=== PATIENT | male | born 1960 | race Caucasian/White ===

== ENCOUNTER 2020-04-15 11:01 | Inpatient (IN) | payer OTHER, SELFPAY ==
[2020-04-15] VITALS (14 sets, daily range): BP systolic 103–207; BP diastolic 63–95; PULSE 88–105; RESP 16–20; TEMP 36.4–39.4; O2SAT 94–98; BMI 55.9
--- NOTE | 2020-04-15 11:19 | CT_ITS ---
EXAMINATION: CT HEAD WITHOUT CONTRAST CT CERVICAL SPINE WITHOUT CONTRAST CLINICAL INFORMATION: Reason for Exam trauma, pain COMPARISON: None. TECHNIQUE: Imaging was performed from the skull base to vertex without intravenous administration of contrast. In addition, helical noncontrast CT imaging was acquired through the cervical spine and source images were reviewed along with axial reconstructions and sagittal and coronal MPRs. This CT examination was performed using dose optimization techniques as appropriate, variously including the following: *Automated exposure control. *Adjustment of mA and/or kV according to patient size (this includes techniques or standardized protocols for targeted exams where dose is matched to indication/reason for exam; i.e. extremities or head). *Use of iterative reconstruction technique. Total exam dose-length product 1800.6 mGy-cm FINDINGS: HEAD: No intracranial mass, hemorrhage, or midline shift is visualized. The ventricles and sulci are age-appropriate. No extra-axial collections are identified. The paranasal sinuses and mastoid air cells are well aerated, except for partial opacification of the right-sided maxillary sinus with air-fluid level, may represent acute posttraumatic intrasinus hemorrhage versus acute sinusitis.. CERVICAL SPINE: Nonspecific straightening of the cervical spine is present with multilevel mild degenerative spondylosis throughout the entire cervical spine. Mild facet degenerative arthritic changes are also noted bilaterally throughout the spine. There is no evidence of acute cervical spine fracture. Vertebral bodies remain normal in height, and alignment is anatomic. No prevertebral or paravertebral soft tissue abnormality is identified. Limited assessment of the lung apices is unremarkable. CT/CT cervical spine wo con IMPRESSION: 1. No acute intracranial pathology. 2. No CT evidence of acute cervical spine fracture or traumatic subluxation. 3. Note is made of air-fluid level within the right maxillary sinus, may represent acute posttraumatic intrasinus hemorrhage versus acute sinusitis.
--- NOTE | 2020-04-15 11:19 | XR_ITS ---
EXAMINATION: CHEST AND LUMBAR SPINE CLINICAL INFORMATION: Weakness COMPARISON: Chest x-ray of February 04, 2018 TECHNIQUE: AP portable chest and three-view lumbar spine FINDINGS: AP portable film of the chest does not demonstrate any evidence of acute parenchymal disease, pneumothorax, or pleural effusion. Heart normal size. No evidence of pulmonary edema. 3 views of the lumbar spine performed. Lateral views are very limited due to lack of penetration. There are 5 nonrib bearing lumbar vertebra. Degenerative spurring is seen within the lower thoracic spine. No definite acute fracture is identified. There is disc space narrowing seen L3-S1. There is facet arthropathy seen bilaterally L4-S1. There is gaseous distention of multiple loops of small bowel. XR/XR chest 1V IMPRESSION: No acute parenchymal disease within the chest. Lumbar spondylosis as described without definite acute fracture identified but with limitation of lateral images.
--- NOTE | 2020-04-15 11:19 | ECG_ITS ---
Test Reason : WEAKNESS/FALL Blood Pressure : / mmHG Vent. Rate : 095 BPM Atrial Rate : 096 BPM P-R Int : 000 ms QRS Dur : 078 ms QT Int : 338 ms P-R-T Axes : 000 057 041 degrees QTc Int : 424 ms Normal sinus rhythm Poor data quality Nonspecific ST abnormality Low voltage QRS Abnormal ECG When compared with ECG of 06-JUL-2019 14:35, Heart rate has increased Premature ventricular complexes is no longer Present Referred By: Dianelys Miller Electronically Signed By:MATILDA ZAVALETA MD
--- NOTE | 2020-04-15 11:19 | XR_ITS ---
EXAMINATION: CHEST AND LUMBAR SPINE CLINICAL INFORMATION: Weakness COMPARISON: Chest x-ray of February 04, 2018 TECHNIQUE: AP portable chest and three-view lumbar spine FINDINGS: AP portable film of the chest does not demonstrate any evidence of acute parenchymal disease, pneumothorax, or pleural effusion. Heart normal size. No evidence of pulmonary edema. 3 views of the lumbar spine performed. Lateral views are very limited due to lack of penetration. There are 5 nonrib bearing lumbar vertebra. Degenerative spurring is seen within the lower thoracic spine. No definite acute fracture is identified. There is disc space narrowing seen L3-S1. There is facet arthropathy seen bilaterally L4-S1. There is gaseous distention of multiple loops of small bowel. XR/XR lumbar spine 2-3V IMPRESSION: No acute parenchymal disease within the chest. Lumbar spondylosis as described without definite acute fracture identified but with limitation of lateral images.
--- NOTE | 2020-04-15 11:21 | ED_ITS ---
HPI - Fall General Chief Complaint: Fall Stated Complaint: FALL OUT OF BED Time Seen by Provider: 04/15/20 11:04 Source: patient and EMS Mode of arrival: EMS Limitations: no limitations History of Present Illness HPI Narrative: 59-year-old male with a past medical history of hypertension, insulin-dependent diabetes, high cholesterol, morbid obesity of low back pain. The patient tells me around 03:00 he was walking back from the bathroom with his cane when he slipped landing on his back. He is unsure if he hit his head. He does not believe he lost consciousness. He was unable to get off the floor by himself. His mom found him this morning and called EMS. Patient does tell me he has had generalized weakness for the last few days and feels dizzy with position changes. No chest pain, shortness of breath, fevers, chills, cough, vomiting, diarrhea, urinary problems. complaint: fall Onset (ago): hour(s) Fall from: standing Fall witnessed: no Place fall occurred: home Loss of consciousness: none Prolonged down time: yes (8 hrs) Symptoms prior to fall: none Context: tripped/slipped Location of injury: back Related Data Previous Rx's Medication Instructions Recorded metformin 1,000 mg tablet 1,000 mg PO BID #60 tab 04/07/20 amlodipine 5 mg tablet 5 mg PO DAILY #30 tab 04/12/20 Allergies Allergy/AdvReac Type Severity Reaction Status Date / Time No Known Allergies Allergy Unverified 02/24/20 14:37 [No Known Allergies*] Review of Systems Review of Systems: Yes all other systems are reviewed and are negative Constitutional: Constitutional: Reports no additional constitutional complaints, Denies body ache(s), Denies chills, Denies fever(s), Denies headache(s) and Reports weakness Eyes: Eyes: Reports no additional eye complaints and Denies change in vision ENT: Reports system reviewed and no additional complaints, except as documented, Reports dizziness, Denies headache(s), Denies nasal congestion, Den ies nasal discharge and Denies neck pain Cardiovascular: Cardiovascular: Reports no additional cardiovascular complaints, Denies chest pain, Denies leg edema and Denies dyspnea Respiratory: Respiratory: Reports no additional respiratory complaints, Denies cough and Denies dyspnea Gastrointestinal: Gastrointestinal: Reports no additional gastrointestinal complaints, Denies abdominal pain, Denies diarrhea, Denies nausea and Denies vomiting Genitourinary: Genitourinary: Denies urinary incontinence Musculoskeletal: Musculoskeletal: Reports no additional musculoskeletal complaints, Reports back pain, Denies arthralgias, Denies joint swelling, Denies neck pain, Denies numbness and Denies tingling Integumentary/Breasts: Skin/Breast: Reports system reviewed and no additional complaints, except as docu and Denies rash Neurologic: Reports system reviewed and no additional complaints, except as documented, Denies Abnormal speech present, Reports dizziness, Denies headache(s), Denies numbness, Denies tingling and Reports weakness PMFSH Past Medical History Attestation statement: The following information was validated with the patient. Source: obtained from family and nursing notes reviewed Medical History Diabetic acidosis, type I High cholesterol HTN (hypertension) Surgical History Hx of hernia repair Social History Social History Smoking Status: Former smoker Use of substances other than those prescribed or required for medical reasons: No Advance Directives: No Advance Directives Information Provided: No Physical Exam Vital Signs: Vital Signs: Last Vital Signs Temp 97.5 F 04/15/20 11:10 Pulse 93 04/15/20 11:10 Resp 20 04/15/20 11:10 BP 182/70 H 04/15/20 11:10 Pulse Ox 97 04/15/20 11:10 Body Mass Index 55.9 Const: General: cooperative, healthy appearing, comfortable and no acute distress Orientation/consciousness: patient oriented x3 Limitations: no limitations HENMT: Head: Yes normal to inspection Ears: hearing grossly normal bilaterally General nose exam: Normal external nose present Face and sinus: Yes normal facial exam Mouth: Normal oral and palatal mucosa present Throat: Yes posterior oropharynx normal Eyes: General: appearance normal, both eyes and all related structures Pupils: Equal, round and reactive pupils present Neck: Neck: Yes normal visual inspection Chest: Chest palpation & inspection: normal inspection of the chest Resp: Effort & Inspection: normal respiratory effort Auscultation: clear to auscultation bilaterally Cardio: Rate: regular rate Rhythm: regular rhythm Peripheral pulses: Peripheral pulses 2+ throughout GI: Inspection: Yes normal to inspection Palpation (GI): Soft to palpation and nontender Auscultation: normal bowel sounds : General: Yes no CVA tenderness Back/Spine/Pelvis: Other: Lumbar midline tenderness with no step-offs or deformities. Moderate soft tissue tenderness paraspinal. Back: no CVA tenderness Thoracic/Lumbar Spine: thoracic and lumbar spine normal to inspection and lumbar spinal tenderness Skin: General skin exam: no rashes or lesions noted Neuro: General: patient oriented x3, Normal light touch and pain sensation, no focal motor deficits and normal sensation to monofilament Cranial nerves: Yes CN's II-XII intact bilaterally and Yes Equal, round and reactive pupils present Cognition (Neuro): normal cognition Speech: No Abnormal speech present Gait exam (Neuro): Normal gait present Motor exam (neuro): 5/5 motor strength present throughout (4/5 strength lower extremities-equal), Pronator motor f unction not present, no tremor noted and no pronator drift noted Sensory Exam: Normal double simultaneous stimulation for sensation Deep tendon reflexes (DTR's): Right patellar reflex intensity grade: 2+ and Left patellar reflex intensity grade: 2+ Coordination: [id number] test normal and [id number] test normal Extrem: General: Yes normal to inspection Course Course Course Narrative: 59-year-old male here with low back pain status post mechanical fall at 03:00. Patient had been down for about 8 hours before his mom found him this morning. He has since been complaining of some generalized weakness and dizziness with position changes for the last few days. On exam the patient is diffusely weak. He has no focal tenderness and neurological deficits. Stable vital signs. Will check CT head, neck, lumbar imaging, chest x-ray, EKG, labs, orthostatics, UA. 1200-sign out to Dianelys MCKEON pending above. MDM - Fall MDM Narrative Medical decision making narrative: Lumbar strain versus contusion versus fracture, rhabdomyolysis, electrolyte abnormality, anemia, ICH versus contusion, underlying infectious process(pneumonia, UTI) ECG Data ECG interpretation date: 04/15/20 ECG interpretation time: 11:40 Interpretation: Artifact present. Rate of 95, normal HI, normal QRS, normal QT. No ST changes Discharge Plan Discharge Prescriptions: No Action metformin 1,000 mg tablet 1,000 mg PO BID Qty: 60 RF: 3 amlodipine 5 mg tablet 5 mg PO DAILY Qty: 30 RF: 0
[2020-04-15] MEDS: oxyCODONE HCl Immed Release 5 MG TABLET PO (11:32)
[2020-04-15 12:26] LABS: Basophils Percent Auto 0.2 % (0-2); Hematocrit 41.5 % (42-52); Hemoglobin 13.8 g/dl (14.0-18.0); Imm Gran Abs Auto 0.05 X10*3/uL (0.00-0.03); Imm Gran Pct Auto 0.5 % (0.0-0.4); Lymphocytes Absolute Auto 0.7 X10*3/uL (1.2-4.9); Lymphocytes Percent Auto 6.4 % (20-40); MANUAL DIFF FLAG SCAN; Mean Corpuscular HGB Conc 33.3 g/dl (31.0-36.0); Mean Corpuscular Hemoglobin 29.5 pg (27.0-33.0); Mean Corpuscular Volume 88.7 fL (80-98); Monocytes Absolute Auto 0.8 X10*3/uL (0.1-1.2); Monocytes Percent Auto 7.1 % (2-11); Neutrophils Absolute Auto 9.1 X10*3/uL (2.0-8.3); Neutrophils Percent Auto 85.8 % (45-73); Platelet Count 152 X10*3/uL (160-400); Red Blood Count 4.68 X10*6/uL (4.60-5.80); Red Cell Distribution Width 13.2 % (11.0-16.0); SCAN SMEAR FLAG 1; White Blood Count 10.6 X10*3/uL (4.8-10.8)
[2020-04-15 12:33] LABS: INTERNATIONAL NORM RATIO 1.1 (0.9-1.1); Prothrombin Time 13.4 SEC (10.8-13.0)
--- NOTE | 2020-04-15 12:43 | PC.NURSE ---
pt back from ct pt sleeping but states that pain has improved 2/10 at this time, ns on the monitor
[2020-04-15 13:01] LABS: SLIDE REVIEW VERIFIED
[2020-04-15 13:04] LABS: Alanine Aminotransferase 17 U/L (0-40); Albumin Level 3.5 g/dL (3.5-5.0); Alkaline Phosphatase 63 U/L (39-117); Anion Gap 14 (12-20); Aspartate Amino Transferase 41 U/L (5-37); Bilirubin Direct < 0.2 mg/dL (0.0-0.5); Bilirubin Total 0.3 mg/dL (0.0-1.0); Blood Urea Nitrogen 36 mg/dL (9-16); Calcium 7.6 mg/dL (8.4-10.2); Carbon Dioxide 25 mmol/L (22-29); Chloride 105 mmol/L (96-108); Creatinine Clr Calc Pharmacy 72.4; Estimated Glomerular Filt Rate 39; Glucose Random 98 mg/dL (60-115); Magnesium 1.5 mg/dL (1.6-2.6); Potassium 6.1 mmol/l (3.3-5.1); Sodium 138 mmol/L (135-145); Total Protein 6.3 g/dL (6.5-8.0)
--- NOTE | 2020-04-15 13:21 | ECG_ITS ---
Test Reason : WEAKNESS Blood Pressure : / mmHG Vent. Rate : 089 BPM Atrial Rate : 089 BPM P-R Int : 170 ms QRS Dur : 098 ms QT Int : 358 ms P-R-T Axes : 055 035 039 degrees QTc Int : 435 ms Normal sinus rhythm Low voltage QRS Intra-ventricular conduction delay Borderline ECG When compared with ECG of 15-APR-2020 11:10, No significant changes seen Referred By: Dianelys Miller Electronically Signed By:MATILDA ZAVALETA MD
[2020-04-15] MEDS: Sodium Polystyrene Sulfon/Sorb 15 GM/60 ML ORAL.SUSP 30 GM PO (13:47)
[2020-04-15] MEDS: Calcium Gluconate/NaCl,Iso-Osm 1 GM/50 ML PLAST..BAG IV (13:47)
[2020-04-15] MEDS: 0.9 % Sodium Chloride 1,000 ML 999 ML IVCONT ×2 (13:59→14:02)
--- NOTE | 2020-04-15 14:02 | PC.NURSE ---
PT IS CURRENTLY RESTING IN THE STRETCHER, DENIES CHEST PAIN/SOB/DIZZINESS, VS STABLE CALCLIUM GLUCONATE INFUSING
--- NOTE | 2020-04-15 16:19 | P.HPHOSP_ITS ---
History of Present Illness Date of Service: 04/15/20 <Yael Sykes NP - Last Filed: 04/16/20 10:18> Chief Complaint: Weakness <Yael Sykes NP - Last Filed: 04/16/20 10:18> 59 year old man presenting with weakness. He reported that she fell over his cane and fell to the ground at 0300 this morning. He was on the ground until about 10am when he was able to get the attention of his mother, whom is his primary resident care director. Reports poor appetite over last few days. He denied chest pain, shortness of breath, nausea, vomiting, diarrhea, loss of consciousness. He had multiple imaging studies including cervical spine CT, chest x-ray, head CT, lumbar spine x-ray all negative for acute abnormality. he was noted to have an elevated CK And potassium of 6.1. His creatinine was also noted to be elev ated at 1.78. His troponin was also elevated at 140, a denied chest pain and there was no ischemic changes. He was given a dose of Kayexalate, oxycodone, calcium gluconate and IV fluids in the ER. He will be admitted for further management treatment of rhabdomyolysis. <Yael Sykes NP - Last Filed: 04/16/20 10:18> Review of Systems Review of Systems: Denies any recent fever chills or decrease in appetite respiratory denies any shortness of breath coverage production cardiovascular is adjustment of any PND or edema gastrointestinal denies any dysphagia abdominal pain nausea vomiting or diarrhea genitourinary denies any dysuria frequency or hematuria musculoskeletal denies any joint pain or swelling neuropsych denies any weakness or seizures all other systems reviewed are negative <Yael Sykes NP - Last Filed: 04/16/20 10:18> Constitutional: Constitutional: Denies headache(s) and Reports weakness <Yael Sykes NP - Last Filed: 04/16/20 10:18> ENT: Reports dizziness and Denies headache(s) <Yael Sykes NP - Last Filed: 04/16/20 10:18> Musculoskeletal: Musculoskeletal: Denies numbness and Denies tingling <Yael Sykes NP - Last Filed: 04/16/20 10:18> Neurologic: Reports system reviewed and no additional complaints, except as documented, Denies Abnormal speech present, Reports dizziness, Denies headache (s), Denies numbness, Denies tingling and Reports weakness <Yael Sykes NP - Last Filed: 04/16/20 10:18> [facility] Medical History: Medical History Diabetic acidosis, type I High cholesterol HTN (hypertension) <Yael Sykes NP - Last Filed: 04/16/20 10:18> Surgical History: Surgical History Hx of hernia repair <Yael Sykes NP - Last Filed: 04/16/20 10:18> Social History: Social History Household Members: Other Housing: Apartment Smoking Status: Former smoker Second Hand Smoke Exposure: No service: No Current occupational status: disabled <Yael Sykes NP - Last Filed: 04/16/20 10:18> Meds Allergies/Adverse reactions: Allergies Allergy/AdvReac Type Severity Reaction Status Date / Time No Known Allergies Allergy Unverified 02/24/20 14:37 [No Known Allergies*] <Yael Sykes NP - Last Filed: 04/16/20 10:18> Home medications: Home Medications Medication Instructions Recorded Confirmed Type Rebekah Zhu U-100 Insulin 68 unit SUBCUT DAILY 04/15/20 04/15/20 History folic acid 1 tab PO DAILY 04/15/20 04/15/20 History labetalol 1 tab PO BID 04/15/20 04/15/20 History lisinopril 1 tab PO DAILY 04/15/20 04/15/20 History simvastatin 2 tab PO BEDTIME 04/15/20 04/15/20 History <Yael Sykes NP - Last Filed: 04/16/20 10:18> Physical Exam Vital Signs and Narrative: Vital Signs: Last Vital Signs Temp 98.3 F 04/15/20 12:57 Pulse 104 H 04/15/20 15:10 Resp 18 04/15/20 15:10 BP 207/95 H 04/15/20 15:10 Pulse Ox 98 04/15/20 15:10 Body Mass Index 55.9 <Yael Sykes NP - Last Filed: 04/16/20 10:18> Appearing in no acute distress head is normocephalic atraumatic eyes pupils are PERRLA sclera is anicteric mouth throat mucous membranes are intact and moist neck is supple no lymphadenopathy, no JVD noted lung sounds are clear to auscultation heart regular rate rhythm, clear S1, S2, Chronic leg edema and skin changes positive bowel sounds, abdomen is soft, nontender, obese neuro patient is alert x3, no focal deficits <Yael Sykes NP - Last Filed: 04/16/20 10:18> Neuro: Speech: No Abnormal speech present <Yael Sykes [employer] - Last Filed: 04/16/20 10:18> Results Labs CBC and Chem 7: : 04/16/20 06:30 04/18/20 06:15 <Yael Sykes NP - Last Filed: 04/16/20 10:18> Labs: Laboratory Results - last 24 hr 04/15/20 04/15/20 04/15/20 12:17 12:17 12:17 MCV 88.7 MCH 29.5 MCHC 33.3 RDW 13.2 Plt Count 152 L MPV 9.0 L Immature Gran % (Auto) 0.5 H Neut % (Auto) 85.8 H Lymph % (Auto) 6.4 L Leon % (Auto) 7.1 Eos % (Auto) 0.0 Baso % (Auto) 0.2 Lymph # (Auto) 0.7 L Leon # (Auto) 0.8 Eos # (Auto) 0.0 Baso # (Auto) 0.0 Abs Immat Gran (auto) 0.05 H Absolute Neuts (auto) 9.1 H Absolute Nucleated RBC 0.000 Nucleated RBC % (auto) 0.0 Smear Tech's Comments VERIFIED PT 13.4 H INR 1.1 Anion Gap 14 Estim Creat Clear Calc 72.4 Estimated GFR 39 Random Glucose 98 Calcium 7.6 L Magnesium 1.5 L Total Bilirubin 0.3 Direct Bilirubin < 0.2 AST 41 H ALT 17 Alkaline Phosphatase 63 Total Creatine Kinase 2276 H Troponin I High Sens Total Protein 6.3 L Albumin 3.5 04/15/20 12:17 MCV MCH MCHC RDW Plt Count MPV Immature Gran % (Auto) Neut % (Auto) Lymph % (Auto) Leon % (Auto) Eos % (Auto) Baso % (Auto) Lymph # (Auto) Leon # (Auto) Eos # (Auto) Baso # (Auto) Abs Immat Gran (auto) Absolute Neuts (auto) Absolute Nucleated RBC Nucleated RBC % (auto) Smear Tech's Comments PT INR Anion Gap Estim Creat Clear Calc Estimated GFR Random Glucose Calcium Magnesium Total Bilirubin Direct Bilirubin AST ALT Alkaline Phosphatase Total Creatine Kinase Troponin I High Sens 140.0 H Total Protein Albumin <Yael Sykes NP - Last Filed: 04/16/20 10:18> Imaging Radiologist's Impressions: Impressions Cervical Spine CT 04/15/20 11:19 IMPRESSION: 1. No acute intracranial pathology. 2. No CT evidence of acute cervical spine fracture or traumatic subluxation. 3. Note is made of air-fluid level within the right maxillary sinus, may represent acute posttraumatic intrasinus hemorrhage versus acute sinusitis. Chest X-Ray 04/15/20 11:19 IMPRESSION: No acute parenchymal disease within the chest. Lumbar spondylosis as described without definite acute fracture identified but with limitation of lateral images. Head CT 04/15/20 11:19 IMPRESSION: 1. No acute intracranial pathology. 2. No CT evidence of acute cervical spine fracture or traumatic subluxation. 3. Note is made of air-fluid level within the right maxillary sinus, may represent acute posttraumatic intrasinus hemorrhage versus acute sinusitis. Lumbar Spine X-Ray 04/15/20 11:19 IMPRESSION: No acute parenchymal disease within the chest. Lumbar spondylosis as described without definite acute fracture identified but with limitation of lateral images. <Yael Sykes NP - Last Filed: 04/16/20 10:18> Assessment and Plan (1) Rhabdomyolysis: Status: Acute <Yael Sykes NP - Last Filed: 04/16/20 10:18> 59 year old man admitted with mild Rhabdomyolysis after having a mechanical fall and being on the ground for 7 hours. Rhabdomyolysis. likely from being on the floor for 7 hours. IV fluids, Follow renal function closely. Hypertension. Patient reports that he did not take his morning medication. Will give now. Otherwise continue amlodipine , labetalol and lisinopril. Diabetes mellitus. Sliding scale, ADA diet, continue Lantus and metformin CKD. Baseline Hyperlipidemia. Continue statin. Obesity. BMI 56.3. Likely contributing to other comorbidities DVT prophylaxis with heparin Case discussed with Dr. Diaz Full code <Yael Sykes [employer] - Last Filed: 04/16/20 10:18>
[2020-04-15] MEDS: amLODIPine Besylate 5 MG TABLET PO (16:59)
--- NOTE | 2020-04-15 17:02 | PC.NURSE ---
pt awake, oriented, able to answer questions. He had been sleepy previously but is awake and appriopriate at this time.
[2020-04-15 17:46] LABS: Pt Ventilation O2% ROOM AIR
[2020-04-15 17:48] LABS: ABG PCO2 37 mmhg (32-45); Base Excess ABG -3.9; HCO3 ABG 21 mmol/l (22-26); Oxygen Saturation ABG 90.6 %; PO2 ABG 62 mmhg (83-108); pH ABG 7.37 (7.35-7.45)
[2020-04-15] MEDS: Heparin Sodium,Porcine 5,000 UNIT/ML VIAL 5000 UNIT SUBCUT (18:07)
--- NOTE | 2020-04-15 19:59 | CT_ITS ---
EXAMINATION: CT CHEST WITHOUT CONTRAST CLINICAL INFORMATION: Shortness of breath. Fever. COMPARISON: Chest x-ray 04/15/2020 TECHNIQUE: Multidetector volumetric CT imaging of the chest was done. Axial MIP volume rendering provided. Sagittal and coronal reformatted images were obtained. This CT examination was performed using dose optimization techniques as appropriate, variously including the following: *Automated exposure control *Adjustment of mA and/or kV according to patient size (this includes techniques or standardized protocols for targeted exams where dose is matched to indication/reason for exam; i.e. extremities or head) *Use of iterative reconstruction technique DLP: 796 mGy-cm FINDINGS: LUNGS: The lungs are clear with no evidence of inflammation or nodules. MEDIASTINUM: No mediastinal mass or significant lymphadenopathy. No pericardial effusion. Moderate volume of coronary artery calcifications. Small volume of calcification of thoracic aortic arch. PLEURA: There is no pleural effusion. No pleural mass or thickening. AXILLA: No lymphadenopathy. UPPER ABDOMEN: Multiple partially calcified gallstones in the gallbladder. No edema around the gallbladder or bile duct dilatation. OSSEOUS STRUCTURES: Degenerative spondylosis of dorsal spine. No acute osseous abnormality. CT/CT chest wo con IMPRESSION: 1. No acute change of chest. 2. Cholelithiasis.
[2020-04-15] MEDS: Acetaminophen 325 MG TABLET 650 MG PO (20:10)
[2020-04-15 20:39] LABS: Glucose, Whole Blood 87 mg/dL (60-115)
[2020-04-15 20:56] LABS: Lactic Acid 1.5 mmol/L (0.5-2.0)
[2020-04-15 21:21] LABS: Potassium 4.8 mmol/l (3.3-5.1)
[2020-04-15 21:24] LABS: Troponin-I High Sensitivity 158.2 ng/L (<3.5-35.0)
[2020-04-15] MEDS: hydrALAZINE HCl 20 MG/ML VIAL 10 MG IVPUSH (21:52)
[2020-04-15] MEDS: Labetalol HCL 200 MG TABLET PO (21:59)
[2020-04-15] MEDS: Atorvastatin Calcium 10 MG TABLET PO (21:59)
[2020-04-15] MEDS: 0.9 % Sodium Chloride 1,000 ML 75 ML IVCONT (22:14)
[2020-04-15] MEDS: Magnesium Sulfate/D5W 1 GM/100 ML PIGGYBACK IV (22:29)
[2020-04-15 23:43] LABS: SARS COV2 PCR INHOUSE NEGATIVE (Negative)
[2020-04-16] VITALS (9 sets, daily range): BP systolic 118–150; BP diastolic 54–72; PULSE 70–84; RESP 18–20; TEMP 36–37.2; O2SAT 94–98; BMI 56.2
[2020-04-16] MEDS: 0.9 % Sodium Chloride Flush 3 ML SYRINGE IVFLUSH (00:55)
[2020-04-16] MEDS: Heparin Sodium,Porcine 5,000 UNIT/ML VIAL 5000 UNIT SUBCUT ×2 (05:36→17:11)
[2020-04-16 07:11] LABS: MANUAL DIFF FLAG NO
[2020-04-16 07:25] LABS: Glucose, Whole Blood 100 mg/dL (60-115)
[2020-04-16 07:27] LABS: Basophils Percent Auto 0.4 % (0-2); Eosinophils Percent Auto 0.2 % (0-4); Hematocrit 36.8 % (42-52); Hemoglobin 11.7 g/dl (14.0-18.0); Imm Gran Abs Auto 0.04 X10*3/uL (0.00-0.03); Imm Gran Pct Auto 0.5 % (0.0-0.4); Lymphocytes Percent Auto 12.2 % (20-40); Mean Corpuscular HGB Conc 31.8 g/dl (31.0-36.0); Mean Corpuscular Volume 91.1 fL (80-98); Mean Platelet Volume 9.3 fL (9.4-12.4); Monocytes Absolute Auto 0.9 X10*3/uL (0.1-1.2); Monocytes Percent Auto 10.8 % (2-11); Neutrophils Absolute Auto 6.4 X10*3/uL (2.0-8.3); Neutrophils Percent Auto 75.9 % (45-73); Platelet Count 135 X10*3/uL (160-400); Red Blood Count 4.04 X10*6/uL (4.60-5.80); Red Cell Distribution Width 13.4 % (11.0-16.0); White Blood Count 8.4 X10*3/uL (4.8-10.8)
[2020-04-16 07:52] LABS: Anion Gap 14 (12-20); Blood Urea Nitrogen 30 mg/dL (9-16); Calcium 6.9 mg/dL (8.4-10.2); Carbon Dioxide 23 mmol/L (22-29); Chloride 105 mmol/L (96-108); Creatinine Clr Calc Pharmacy 73.9; Estimated Glomerular Filt Rate 40; Glucose Random 101 mg/dL (60-115); Potassium 4.4 mmol/l (3.3-5.1); Sodium 138 mmol/L (135-145)
[2020-04-16] MEDS: Labetalol HCL 200 MG TABLET PO ×2 (08:03→21:15)
[2020-04-16] MEDS: amLODIPine Besylate 5 MG TABLET PO (08:04)
[2020-04-16] MEDS: lisinopriL 5 MG TABLET PO (08:04)
[2020-04-16] MEDS: Insulin Glargine,Hum.rec.anlog 100 UNIT/ML 10 ML VIAL 68 UNIT SUBCUT (08:33)
--- NOTE | 2020-04-16 10:01 | PM.IMPN ---
Subjective Subjective Date of Service: 04/16/20 <Yael Sykes NP - Last Filed: 04/16/20 10:17> Interval History: 59-year-old man admitted with rhabdomyolysis after a fall at home. He was stuck on the floor for approximately 7 hours. He looks much better today sitting up in a chair reports that he actually felt hungry today. he has some complaints of back pain. His CK is still elevated. <Yael Sykes NP - Last Filed: 04/16/20 10:17> Physical Exam Vital Signs: Vital Signs: Last Vital Signs Temp 98 F 04/16/20 07:17 Pulse 75 04/16/20 08:04 Resp 20 04/16/20 07:17 BP 147/60 H 04/16/20 08:04 Pulse Ox 97 04/16/20 07:17 Body Mass Index 56.2 <Yael Sykes NP - Last Filed: 04/16/20 10:17> Appearing in no acute distress head is normocephalic atraumatic eyes pupils are PERRLA sclera is anicteric mouth throat mucous membranes are intact and moist neck is supple no lymphadenopathy, no JVD noted lung sounds are clear to auscultation heart regular rate rhythm, clear S1, S2 positive bowel sounds, abdomen is soft, nontender, obese neuro patient is alert x3, no focal deficits <Yael Sykes NP - Last Filed: 04/16/20 10:17> Objective Data Current Medications Generic Name Dose Route Start Last Admin Trade Name Freq PRN Reason Stop Dose Admin Acetaminophen 650 mg 04/15/20 19:17 04/15/20 20:10 Acetaminophen 325 Mg Tablet PO 650 mg Q6H PRN Administration Pain, Mild (Pain Scale 1-3) Amlodipine Besylate 5 mg 04/16/20 09:00 04/16/20 08:04 Amlodipine Besylate 5 Mg Tablet PO 5 mg DAILY ROSE Administration Protocol Atorvastatin Calcium 10 mg 04/15/20 21:00 04/15/20 21:59 Atorvastatin Calcium 10 Mg Tablet PO 10 mg BEDTIME ROSE Administration Heparin Sodium (Porcine) 5,000 unit 04/15/20 18:00 04/16/20 05:36 Heparin Sodium,Porcine 5,000 Unit/Ml Vial SUBCUT 5,000 unit Q12H ROSE Administration Sodium Chloride 1,000 mls @ 75 mls/hr 04/15/20 19:17 04/16/20 08:01 Ns IVCONT Not Given .[id number] [facility] Insulin Glargine 68 unit 04/16/20 09:00 04/16/20 08:33 Insulin Glargine,Hum.Rec.Anlog 100 Unit/Ml 10 Ml Vial SUBCUT 68 unit DAILY [facility] Administration Insulin Human Lispro 0 unit 04/15/20 21:00 04/16/20 07:30 Insulin Lispro 100 Unit/Ml 3 Ml Vial SUBCUT Not Given QIDACHS [facility] Protocol Labetalol HCl 200 mg 04/15/20 21:00 04/16/20 08:03 Labetalol Hcl 200 Mg Tablet PO 200 mg BID [facility] Administration Protocol Lisinopril 5 mg 04/16/20 09:00 04/16/20 08:04 Lisinopril 5 Mg Tablet PO 5 mg DAILY [facility] Administration Protocol Ondansetron HCl 4 mg 04/15/20 19:17 Ondansetron Hcl 4 Mg/2 Ml Vial IVPUSH Q8H PRN Nausea and Vomiting Sodium Chloride 3 ml 04/16/20 00:00 04/16/20 07:30 0.9 % Sodium Chloride Flush 3 Ml Syringe IVFLUSH Not Given QSHIFT [facility] <Yael Sykes NP - Last Filed: 04/16/20 10:17> Labs CBC & Chem 7: : 04/16/20 06:30 04/18/20 06:15 <Yael Sykes NP - Last Filed: 04/16/20 10:17> Labs: Laboratory Results - last 24 hr 04/15/20 04/15/20 04/15/20 12:17 12:17 12:17 MCV 88.7 MCH 29.5 MCHC 33.3 RDW 13.2 Plt Count 152 L MPV 9.0 L Immature Gran % (Auto) 0.5 H Neut % (Auto) 85.8 H Lymph % (Auto) 6.4 L [place] % (Auto) 7.1 Eos % (Auto) 0.0 Baso % (Auto) 0.2 Lymph # (Auto) 0.7 L [place] # (Auto) 0.8 Eos # (Auto) 0.0 Baso # (Auto) 0.0 Abs Immat Gran (auto) 0.05 H Absolute Neuts (auto) 9.1 H Absolute Nucleated RBC 0.000 Nucleated RBC % (auto) 0.0 Smear Tech's Comments VERIFIED PT 13.4 H INR 1.1 ABG pH ABG pCO2 ABG pO2 ABG HCO3 ABG O2 Saturation ABG Base Excess Oxygen Given Anion Gap 14 Estim Creat Clear Calc 72.4 Estimated GFR 39 POC Glucose Random Glucose 98 Lactic Acid Calcium 7.6 L Magnesium 1.5 L Total Bilirubin 0.3 Direct Bilirubin < 0.2 AST 41 H ALT 17 Alkaline Phosphatase 63 Total Creatine Kinase 2276 H Troponin I High Sens Total Protein 6.3 L Albumin 3.5 Coronavirus (PCR) 04/15/20 04/15/20 04/15/20 12:17 17:40 20:28 MCV MCH MCHC RDW Plt Count MPV Immature Gran % (Auto) Neut % (Auto) Lymph % (Auto) [place] % (Auto) Eos % (Auto) Baso % (Auto) Lymph # (Auto) [place] # (Auto) Eos # (Auto) Baso # (Auto) Abs Immat Gran (auto) Absolute Neuts (auto) Absolute Nucleated RBC Nucleated RBC % (auto) Smear Tech's Comments PT INR ABG pH 7.37 ABG pCO2 37 ABG pO2 62 L ABG HCO3 21 L ABG O2 Saturation 90.6 ABG Base Excess -3.9 Oxygen Given ROOM AIR Anion Gap Estim Creat Clear Calc Estimated GFR POC Glucose Random Glucose Lactic Acid Calcium Magnesium Total Bilirubin Direct Bilirubin AST ALT Alkaline Phosphatase Total Creatine Kinase Troponin I High Sens 140.0 H 158.2 H Total Protein Albumin Coronavirus (PCR) 04/15/20 04/15/20 04/15/20 20:28 20:36 22:36 MCV MCH MCHC RDW Plt Count MPV Immature Gran % (Auto) Neut % (Auto) Lymph % (Auto) [place] % (Auto) Eos % (Auto) Baso % (Auto) Lymph # (Auto) [place] # (Auto) Eos # (Auto) Baso # (Auto) Abs Immat Gran (auto) Absolute Neuts (auto) Absolute Nucleated RBC Nucleated RBC % (auto) Smear Tech's Comments PT INR ABG pH ABG pCO2 ABG pO2 ABG HCO3 ABG O2 Saturation ABG Base Excess Oxygen Given Anion Gap Estim Creat Clear Calc Estimated GFR POC Glucose 87 Random Glucose Lactic Acid 1.5 Calcium Magnesium Total Bilirubin Direct Bilirubin AST ALT Alkaline Phosphatase Total Creatine Kinase Troponin I High Sens Total Protein Albumin Coronavirus (PCR) NEGATIVE 04/16/20 04/16/20 04/16/20 06:30 06:30 07:20 MCV 91.1 MCH 29.0 MCHC 31.8 RDW 13.4 Plt Count 135 L MPV 9.3 L Immature Gran % (Auto) 0.5 H Neut % (Auto) 75.9 H Lymph % (Auto) 12.2 L [place] % (Auto) 10.8 Eos % (Auto) 0.2 Baso % (Auto) 0.4 Lymph # (Auto) 1.0 L [place] # (Auto) 0.9 Eos # (Auto) 0.0 Baso # (Auto) 0.0 Abs Immat Gran (auto) 0.04 H Absolute Neuts (auto) 6.4 Absolute Nucleated RBC 0.000 Nucleated RBC % (auto) 0.0 Smear Tech's Comments PT INR ABG pH ABG pCO2 ABG pO2 ABG HCO3 ABG O2 Saturation ABG Base Excess Oxygen Given Anion Gap 14 Estim Creat Clear Calc 73.9 Estimated GFR 40 POC Glucose 100 Random Glucose 101 Lactic Acid Calcium 6.9 L D Magnesium Total Bilirubin Direct Bilirubin AST ALT Alkaline Phosphatase Total Creatine Kinase 2974 H Troponin I High Sens Total Protein Albumin Coronavirus (PCR) <Yael Sykes NP - Last Filed: 04/16/20 10:17> Progress Note: A&P (1) Rhabdomyolysis: Status: Acute <Yael Sykes NP - Last Filed: 04/16/20 10:17> Assessment and Plan: 59 year old man admitted with mild Rhabdomyolysis after having a mechanical fall and being on the ground for 7 hours. Rhabdomyolysis. Likely from being on the floor for 7 hours. CK still high, 2974, renal function at baseline -Increase IV fluids -PT consultation for weakness Orthostasis. Seems likely from hypovolemia. Poor appetite. 160/72, 95 sitting, 192/78, 88 supine. Unable to stand. -Continue IV fluids. -Recheck orthos today Back pain. From fall. -Tylenol, heat packs. Hypertension. Improved -Continue home medications CKD. At baseline Diabetes mellitus. Sliding scale, ADA diet, continue Lantus and metformin Hyperlipidemia. Continue statin. Obseity. BMI 56.3. Contributing to other comorbidities. DVT prophylaxis with heparin Case discussed with Dr. Diaz Full code <Yael Sykes NP - Last Filed: 04/16/20 10:17>
[2020-04-16 11:32] LABS: Glucose, Whole Blood 235 mg/dL (60-115)
[2020-04-16] MEDS: Insulin Lispro 100 UNIT/ML 3 ML VIAL SUBCUT ×3 (11:41→21:15)
[2020-04-16] MEDS: 0.9 % Sodium Chloride 1,000 ML 75 ML IVCONT (11:41)
[2020-04-16 16:44] LABS: Glucose, Whole Blood 183 mg/dL (60-115)
[2020-04-16 19:53] LABS: Appearance Urine HAZY; Color Urine YELLOW; Glucose Urine UA 250 MG/DL (NEG); Leukocyte Esterase Urine NEG (NEG); Nitrite Urine NEG (NEG); Specific Gravity - Urine >= 1.030 (1.005-1.025); Urine Blood 2+ (NEG); Urine Ketones NEG (NEG); Urine Protein 2+ MG/DL (NEG-TRACE)
[2020-04-16 20:00] LABS: Bacteria Urine 1+ /LPF; Squamous Epithelial Cell Urine 1+ /LPF; WBC Urine 0 /HPF (0-4)
[2020-04-16 20:58] LABS: Glucose, Whole Blood 257 mg/dL (60-115)
[2020-04-16] MEDS: Atorvastatin Calcium 10 MG TABLET PO (21:15)
[2020-04-16] MEDS: Acetaminophen 325 MG TABLET 650 MG PO (21:20)
[2020-04-17] VITALS (10 sets, daily range): BP systolic 83–147; BP diastolic 44–74; PULSE 59–78; RESP 18–20; TEMP 36.1–37; O2SAT 94–97; BMI 56.2
[2020-04-17] MEDS: 0.9 % Sodium Chloride 1,000 ML 125 ML IVCONT ×2 (01:17→10:16)
[2020-04-17] MEDS: Heparin Sodium,Porcine 5,000 UNIT/ML VIAL 5000 UNIT SUBCUT ×2 (05:35→16:48)
[2020-04-17 07:31] LABS: Glucose, Whole Blood 214 mg/dL (60-115)
--- NOTE | 2020-04-17 07:57 | MHC.CDI.CONC ---
CDI Concurrent Query Service Date: 04/17/20 Documentation Clarification: Please clarify if you are treating a probable/suspected/likely or confirmed: Hyperkalemia Please specify if known or other PLEASE DO NOT DELETE/MODIFY EXISTING CONTENT Additional information is needed in order to code to the highest accuracy and appropriate Severity of Illness (SOI). Please clarify the information noted below in your progress notes and discharge summary. Risk Factors/Clinical Indicators/Treatments Labs findings: potassium 6.1> Kayexalate and calcium gluconate ordered. IV fluids Rhabdomyolysis, weakness, hypovolemic, fall. CDS: Christy Carter [facility], CDIS Contact Number: [phone]. [phone] Please Review the information above and exercise your independent professional judgment in responding to the query. If you concur, pleas document in the PROGRESS NOTES and DISCHARGE SUMMARY. If you do not agree with the query, please document in the query above. THIS QUERY IS PART OF THE PERMANENT MEDICAL RECORD
[2020-04-17] MEDS: Insulin Lispro 100 UNIT/ML 3 ML VIAL SUBCUT ×4 (08:21→21:35)
[2020-04-17] MEDS: Insulin Glargine,Hum.rec.anlog 100 UNIT/ML 10 ML VIAL 68 UNIT SUBCUT (08:21)
[2020-04-17] MEDS: Labetalol HCL 200 MG TABLET PO ×2 (08:21→21:33)
[2020-04-17] MEDS: amLODIPine Besylate 5 MG TABLET PO (08:21)
[2020-04-17] MEDS: lisinopriL 5 MG TABLET PO (08:21)
[2020-04-17] MEDS: 0.9 % Sodium Chloride Flush 3 ML SYRINGE IVFLUSH ×2 (08:22→23:39)
[2020-04-17 10:22] LABS: Anion Gap 12 (12-20); Blood Urea Nitrogen 41 mg/dL (9-16); Calcium 7.1 mg/dL (8.4-10.2); Carbon Dioxide 23 mmol/L (22-29); Chloride 105 mmol/L (96-108); Creatinine Clr Calc Pharmacy 66.3; Estimated Glomerular Filt Rate 35; Glucose Random 242 mg/dL (60-115); Potassium 4.3 mmol/l (3.3-5.1); Sodium 136 mmol/L (135-145)
--- NOTE | 2020-04-17 10:57 | MHC.CDI.CONC ---
CDI Concurrent Query Service Date: 04/17/20 Documentation Clarification: Please clarify if you are treating a probable/suspected/likely or confirmed: Specifics Chronic kidney disease Stage 1-5 Acute on chronic kidney disease Stage 1-5 or other Please specify if known PLEASE DO NOT DELETE/MODIFY EXISTING CONTENT Additional information is needed in order to code to the highest accuracy and appropriate Severity of Illness (SOI). Please clarify the information noted below in your progress notes and discharge summary. Risk Factors/Clinical Indicators/Treatments ED: Renal function elevated at baseline. History of CKD Bun 30 Cr: 1.78 Gfr: 39-40 Elevated potassium, weakness, dizziness, creatinine noted to be elevated at 1.78. IV fluids ordered. CDI Christy Cartre, MARILYN, CDIS Ext. [phone] Please Review the information above and exercise your independent professional judgment in responding to the query. If you concur, pleas document in the PROGRESS NOTES and DISCHARGE SUMMARY. If you do not agree with the query, please document in the query above. THIS QUERY IS PART OF THE PERMANENT MEDICAL RECORD
[2020-04-17 11:52] LABS: Glucose, Whole Blood 252 mg/dL (60-115)
--- NOTE | 2020-04-17 13:11 | MHC.CM.PN ---
Pt reports he lives at home with his mother and he is independent with all care and mobility. Pt reports he has both a cane and a walker. Pt was using only the cane [employer] but reports he plans to use the walker when he leaves the house from now on. Pt reports he has a patient advocate from [facility] who helps him with things like filing his SSI paperwork and finding healthcare providers. Pt reports he thinks he has a HCP on file but if not he would like to do one today. Pt made aware that physical therapy recommended rehab however he reports he does not want to go anywhere. Pt reports he is willing to have PT at home and would like it arranged through [facility]. Pt reports he does not have anything with him to wear at discharge. Pts mother will bring clothes to the hospital however she is elderly. Pt asks that someone be available to go to the car to get his clothes so that his mother can wait in the car. Current DC plan is home with [facility] for PT and continuation of his patient advocate services pts mother will provide transportation at DC
[2020-04-17 16:14] LABS: Glucose, Whole Blood 253 mg/dL (60-115)
--- NOTE | 2020-04-17 17:02 | P.PNIM_ITS ---
Subjective Subjective Date of Service: 04/17/20 Interval History: Other than back pain, no complaints. Was down on the floor for 7 hr, as previously noted. Review of Systems Review of Systems: Yes all other systems are reviewed and are negative Physical Exam Vital Signs: Vital Signs: Last Vital Signs Temp 98.0 F 04/17/20 15:15 Pulse 67 04/17/20 15:15 Resp 20 04/17/20 15:15 BP 123/57 L 04/17/20 15:15 Pulse Ox 96 04/17/20 15:15 Body Mass Index 56.2 gen: NAD HEENT: no hematoma, sclerae anicteric lungs: CTAB, no resp distress CV: RRR no m/r/g abd: soft/NT ext: no edema neuro: no focal deficits Objective Data Current Medications Generic Name Dose Route Start Last Admin Trade Name Freq PRN Reason Stop Dose Admin Acetaminophen 650 mg 04/15/20 19:17 04/16/20 21:20 Acetaminophen 325 Mg Tablet PO 650 mg Q6H PRN Administration Pain, Mild (Pain Scale 1-3) Amlodipine Besylate 5 mg 04/16/20 09:00 04/17/20 08:21 Amlodipine Besylate 5 Mg Tablet PO 5 mg DAILY ROSE Administration Protocol Atorvastatin Calcium 10 mg 04/15/20 21:00 04/16/20 21:15 Atorvastatin Calcium 10 Mg Tablet PO 10 mg BEDTIME ROSE Administration Heparin Sodium (Porcine) 5,000 unit 04/15/20 18:00 04/17/20 16:48 Heparin Sodium,Porcine 5,000 Unit/Ml Vial SUBCUT 5,000 unit Q12H ROSE Administration Sodium Chloride 1,000 mls @ 125 mls/hr 04/15/20 19:17 04/17/20 10:16 Ns IVCONT 125 mls/hr .Q8H ROSE Administration Insulin Glargine 68 unit 04/16/20 09:00 04/17/20 08:21 Insulin Glargine,Hum.Rec.Anlog 100 Unit/Ml 10 Ml Vial SUBCUT 68 unit DAILY ROSE Administration Insulin Human Lispro 0 unit 04/15/20 21:00 04/17/20 16:48 Insulin Lispro 100 Unit/Ml 3 Ml Vial SUBCUT 6 unit QIDACHS ROSE Administration Protocol Labetalol HCl 200 mg 04/15/20 21:00 04/17/20 08:21 Labetalol Hcl 200 Mg Tablet PO 200 mg BID [facility] Administration Protocol Lisinopril 5 mg 04/16/20 09:00 04/17/20 08:21 Lisinopril 5 Mg Tablet PO 5 mg DAILY [facility] Administration Protocol Ondansetron HCl 4 mg 04/15/20 19:17 Ondansetron Hcl 4 Mg/2 Ml Vial IVPUSH Q8H PRN Nausea and Vomiting Sodium Chloride 3 ml 04/16/20 00:00 04/17/20 14:40 0.9 % Sodium Chloride Flush 3 Ml Syringe IVFLUSH Not Given QSHIFT [facility] Labs CBC & Chem 7: 04/16/20 06:30 04/17/20 08:51 Labs: Laboratory Results - last 24 hr 04/16/20 04/16/20 04/17/20 11:52 20:53 07:27 Sodium Potassium Chloride Carbon Dioxide Anion Gap BUN Creatinine Estim Creat Clear Calc Estimated GFR POC Glucose 257 H 214 H Random Glucose Calcium Total Creatine Kinase Urine Color YELLOW Urine Appearance HAZY Urine pH 5.0 Ur Specific [place] >= 1.030 H Urine Protein 2+ H Urine Glucose (UA) 250 H Urine Ketones NEG Urine Blood 2+ H Urine Nitrite NEG Ur Leukocyte Esterase NEG Urine RBC 1-4 Urine WBC 0 Ur Squamous Epith Cells 1+ Urine Bacteria 1+ 04/17/20 04/17/20 04/17/20 08:51 11:49 16:08 Sodium 136 Potassium 4.3 Chloride 105 Carbon Dioxide 23 Anion Gap 12 BUN 41 H Creatinine 1.95 H Estim Creat Clear Calc 66.3 Estimated GFR 35 POC Glucose 252 H 253 H Random Glucose 242 H D Calcium 7.1 L Total Creatine Kinase 2444 H Urine Color Urine Appearance Urine pH Ur Specific Sol[place] Urine Protein Urine Glucose (UA) Urine Ketones Urine Blood Urine Nitrite Ur Leukocyte Esterase Urine RBC Urine WBC Ur Squamous Epith Cells Urine Bacteria Microbiology Microbiology Results: Microbiology 04/15/20 20:28 Blood - Venous Blood Culture - Preliminary No growth after 24 hours. 04/15/20 20:28 Blood - Venous Blood Culture - Preliminary No growth after 24 hours. Assessment and Plan (1) Rhabdomyolysis: Status: Acute Assessment and Plan: hospital d#3 59yo M with CKD2 admitted for rhabdomyolysis s/p mecahnical fall # rhabdomyolysis - continue saline diuresis, monitor Cr/CPK # orthostasis - continue IV fluid resuscitation # hyperK - resolved s/p Kayexelate # CKD - Cr at baseline # back pain - continue APAP, heat packs # HTN - continue amlodipine, lisinopril, labetalol # HLD - continue statin # morbid obesity - weight loss advised # dispo - per PT STR is advised # VTE ppx - UFH
[2020-04-17 20:59] LABS: Glucose, Whole Blood 287 mg/dL (60-115)
[2020-04-17] MEDS: Atorvastatin Calcium 10 MG TABLET PO (21:34)
[2020-04-17] MEDS: Acetaminophen 325 MG TABLET 650 MG PO (21:35)
[2020-04-18] VITALS (7 sets, daily range): BP systolic 123–145; BP diastolic 60–66; PULSE 63–78; RESP 18–20; TEMP 36.4–36.7; O2SAT 93–97
[2020-04-18] MEDS: 0.9 % Sodium Chloride 1,000 ML 125 ML IVCONT ×2 (03:43→12:04)
[2020-04-18] MEDS: Heparin Sodium,Porcine 5,000 UNIT/ML VIAL 5000 UNIT SUBCUT ×2 (06:39→17:17)
[2020-04-18 07:49] LABS: Glucose, Whole Blood 175 mg/dL (60-115)
[2020-04-18 08:10] LABS: Anion Gap 14 (12-20); Blood Urea Nitrogen 43 mg/dL (9-16); Calcium 6.8 mg/dL (8.4-10.2); Carbon Dioxide 22 mmol/L (22-29); Chloride 109 mmol/L (96-108); Creatinine Clr Calc Pharmacy 71.8; Estimated Glomerular Filt Rate 39; Glucose Random 168 mg/dL (60-115); Potassium 4.7 mmol/l (3.3-5.1); Sodium 140 mmol/L (135-145)
[2020-04-18 09:12] LABS: Estimated Average Glucose 200 mg/dL; Hemoglobin A1c % 8.6 %
[2020-04-18] MEDS: Insulin Lispro 100 UNIT/ML 3 ML VIAL SUBCUT ×4 (09:43→21:53)
[2020-04-18] MEDS: Labetalol HCL 200 MG TABLET PO ×2 (09:44→21:55)
[2020-04-18] MEDS: amLODIPine Besylate 5 MG TABLET PO (09:44)
[2020-04-18] MEDS: Insulin Glargine,Hum.rec.anlog 100 UNIT/ML 10 ML VIAL 68 UNIT SUBCUT (09:44)
[2020-04-18] MEDS: lisinopriL 5 MG TABLET PO (09:45)
[2020-04-18 11:44] LABS: Glucose, Whole Blood 219 mg/dL (60-115)
--- NOTE | 2020-04-18 14:42 | P.F2F_ITS ---
Service Date Service Date: 04/18/20 Encounter Date of encounter: 04/18/20 Reasons for Services Reason for senior living: neurological assessment, medication management, medication treatment and teach disease management Reason for physical therapy: home safety and mobility, therapeutic exercises, gait/transfer training, assess need for DME, ADL training, energy conservation and other ( home safety evaluation) Reason for occupational therapy: home safety and mobility, therapeutic exercises, gait/transfer training, assess need for DME, ADL training and energy conservation Overseeing Care: Albert Gregg Homebound: Leaving the home is medically contraindicated at this time without the asist of a device and/or another person due th the listed conditions above and below. Reason homebound: unsteady gait / fall risk, fall risk related to blood pressure changes, pain with transfers and weakness related to hospital stay Homebound supporting statement: the patient was admitted to [facility] 04/15/2020-04/18/20 for rhabdomyolysis related to mechanical fall Certification: Based on the above findings, I certify that this patient is confined to the home and needs intermittent senior living care, physical therapy and/or speech therapy, or continues to need occupational therapy. The patient is under my care, and I have initiated the establishment of the plan of care. The patient will be followed by a physician who will periodically review the plan of care.
--- NOTE | 2020-04-18 14:48 | P.DS_ITS ---
DS: Providers Provider Date of admission: 04/15/20 16:40 Primary care physician: Albert Gregg MD DS: Diagnosis Discharge Diagnosis (1) Rhabdomyolysis: Status: Acute (2) Acute kidney injury superimposed on CKD: Status: Acute (3) Weakness: Status: Acute (4) Orthostasis: Status: Acute (5) Hyperkalemia: Status: Acute (6) Morbid obesity: Status: Acute DS: Summary Hospital Course Hospital Course: from admission history and physical by hospitalist Yael Sykes NP, 04/15: 59 year old man presenting with weakness. He reported that she fell over his cane and fell to the ground at 0300 this morning. He was on the ground until about 10am when he was able to get the attention of his mother, whom is his primary manager primary care. Reports poor appetite over last few days. He denied chest pain, shortness of breath, nausea, vomiting, diarrhea, loss of consciousness. He had multiple imaging studies including cervical spine CT, chest x-ray, head CT, lumbar spine x-ray all negative for acute abnormality. he was noted to have an elevated CK And potassium of 6.1. His creatinine was also noted to be elevated at 1.78. His troponin was also elevated at 140, a denied chest pain and there was no ischemic changes. He was given a dose of Kayexalate, oxycodone, calcium gluconate and IV fluids in the ER. He will be admitted for further management treatment of rhabdomyolysis. The patient was admitted to the [facility] for rhabdomyolysis related to being on the ground for 7 hours after mechanical fall. CPK declined appropriate with saline diuresis, and creatinine was stable at what is likely his baseline. Orthostasis improved with saline hydration as well. Hyperkalemia resolved after the treatments given in the ED above. He was evaluated by PT. STR was recommended but the patient refused and thus was discharged home with VNA services to include PT and OT. He should have a repeat BMP drawn in 1 week and follow up with his primary care doctor then as well. Time Spent with Patient Time attestation: Total time spent providing and/or coordinating discharge services: 35 Physical Exam Vital Signs: Vital Signs: Last Vital Signs Temp 97.7 F 04/18/20 11:36 Pulse 63 04/18/20 11:36 Resp 20 04/18/20 11:36 BP 135/61 04/18/20 11:36 Pulse Ox 97 04/18/20 11:36 Body Mass Index 56.2 gen: NAD HEENT: no hematoma, sclerae anicteric lungs: CTAB, no resp distress CV: RRR no m/r/g abd: soft/NT ext: no edema neuro: no focal deficits DS: Data Data Completed and Pending Labs on day of discharge: Laboratory Results - last 24 hr 04/17/20 04/17/20 04/18/20 16:08 20:54 06:15 Sodium 140 Potassium 4.7 Chloride 109 H Carbon Dioxide 22 Anion Gap 14 BUN 43 H Creatinine 1.80 H Estim Creat Clear Calc 71.8 Estimated GFR 39 POC Glucose 253 H 287 H Random Glucose 168 H Estimat Average Glucose Hemoglobin A1c % Calcium 6.8 L Total Creatine Kinase 1343 H D 04/18/20 04/18/20 04/18/20 06:15 07:39 11:38 Sodium Potassium Chloride Carbon Dioxide Anion Gap BUN Creatinine Estim Creat Clear Calc Estimated GFR POC Glucose 175 H 219 H Random Glucose Estimat Average Glucose 200 Hemoglobin A1c % 8.6 Calcium Total Creatine Kinase Cervical Spine CT 04/15/20 11:19 IMPRESSION: 1. No acute intracranial pathology. 2. No CT evidence of acute cervical spine fracture or traumatic subluxation. 3. Note is made of air-fluid level within the right maxillary sinus, may represent acute posttraumatic intrasinus hemorrhage versus acute sinusitis. Chest X-Ray 04/15/20 11:19 IMPRESSION: No acute parenchymal disease within the chest. Lumbar spondylosis as described without definite acute fracture identified but with limitation of lateral images. Head CT 04/15/20 11:19 IMPRESSION: 1. No acute intracranial pathology. 2. No CT evidence of acute cervical spine fracture or traumatic subluxation. 3. Note is made of air-fluid level within the right maxillary sinus, may represent acute posttraumatic intrasinus hemorrhage versus acute sinusitis. Lumbar Spine X-Ray 04/15/20 11:19 IMPRESSION: No acute parenchymal disease within the chest. Lumbar spondylosis as described without definite acute fracture identified but with limitation of lateral images. Discharge Plan Discharge Anticipated Discharge Date/Time: 04/18/20 14:45 Patient Disposition: Home Health Service Referrals: Albert Gregg MD [Primary Care Provider] - Discharge Medications: Continued metformin 1,000 mg tablet 1,000 mg PO BID Qty: 60 RF: 3 amlodipine 5 mg tablet 5 mg PO DAILY Qty: 30 RF: 0 labetalol 200 mg tablet 1 tab PO BID RF: 0 simvastatin 10 mg tablet 2 tab PO BEDTIME RF: 0 folic acid 1 mg tablet 1 tab PO DAILY RF: 0 lisinopril 5 mg tablet 1 tab PO DAILY RF: 0 Basaglar KwikPen U-100 Insulin 100 unit/mL (3 mL) insulin pen 68 unit subcut DAILY RF: 0 Discharge Orders: Discharge Order (Routine); Ordered 04/18/20 Ordered By: Howie Lewis Diet: diabetic diet Activity on Discharge: As tolerated Patient Instructions: Rhabdomyolysis (DC) Other Ambulatory Orders: Basic Metabolic Panel (Routine) Timeframe: 1 Week Facility: [facility] - Location: Laboratory Ordered By: Howie Lewis Visit Report Forms: Patient Portal Discharge page Care Plan Goals: improvement in balance/transfers/strength Health Concerns: rhabdomyolysis, chronic kidney disease Plan of Treatment: home physical therapy take tylenol/acetaminophen for pain recheck labs [BMP] in 1 week see your primary care doctor in 1 week
--- NOTE | 2020-04-18 15:29 | MHC.CM.PN ---
pt dcd home with ns
--- NOTE | 2020-04-18 16:59 | P.PNIM_ITS ---
Subjective Subjective Date of Service: 04/18/20 Interval History: CPK improved Feels better, though still weak Review of Systems Review of Systems: Yes all other systems are reviewed and are negative Physical Exam Vital Signs: Vital Signs: Last Vital Signs Temp 97.9 F 04/18/20 15:21 Pulse 65 04/18/20 15:21 Resp 18 04/18/20 15:21 BP 123/63 04/18/20 15:21 Pulse Ox 96 04/18/20 15:21 Body Mass Index 56.2 gen: NAD HEENT: no hematoma, sclerae anicteric lungs: CTAB, no resp distress CV: RRR no m/r/g abd: soft/NT ext: no edema neuro: no focal deficits Objective Data Current Medications Generic Name Dose Route Start Last Admin Trade Name Freq PRN Reason Stop Dose Admin Acetaminophen 650 mg 04/15/20 19:17 04/17/20 21:35 Acetaminophen 325 Mg Tablet PO 650 mg Q6H PRN Administration Pain, Mild (Pain Scale 1-3) Amlodipine Besylate 5 mg 04/16/20 09:00 04/18/20 09:44 Amlodipine Besylate 5 Mg Tablet PO 5 mg DAILY ROSE Administration Protocol Atorvastatin Calcium 10 mg 04/15/20 21:00 04/17/20 21:34 Atorvastatin Calcium 10 Mg Tablet PO 10 mg BEDTIME ROSE Administration Heparin Sodium (Porcine) 5,000 unit 04/15/20 18:00 04/18/20 06:39 Heparin Sodium,Porcine 5,000 Unit/Ml Vial SUBCUT 5,000 unit Q12H ROSE Administration Sodium Chloride 1,000 mls @ 125 mls/hr 04/15/20 19:17 04/18/20 12:04 Ns IVCONT 125 mls/hr .Q8H ROSE Administration Insulin Glargine 68 unit 04/16/20 09:00 04/18/20 09:44 Insulin Glargine,Hum.Rec.Anlog 100 Unit/Ml 10 Ml Vial SUBCUT 68 unit DAILY ROSE Administration Insulin Human Lispro 0 unit 04/15/20 21:00 04/18/20 12:05 Insulin Lispro 100 Unit/Ml 3 Ml Vial SUBCUT 4 unit QIDACHS ROSE Administration Protocol Labetalol HCl 200 mg 04/15/20 21:00 04/18/20 09:44 Labetalol Hcl 200 Mg Tablet PO 200 mg BID ROSE Administration Protocol Lisinopril 5 mg 04/16/20 09:00 04/18/20 09:45 Lisinopril 5 Mg Tablet PO 5 mg DAILY [facility] Administration Protocol Ondansetron HCl 4 mg 04/15/20 19:17 Ondansetron Hcl 4 Mg/2 Ml Vial IVPUSH Q8H PRN Nausea and Vomiting Sodium Chloride 3 ml 04/16/20 00:00 04/18/20 14:28 0.9 % Sodium Chloride Flush 3 Ml Syringe IVFLUSH Not Given QSHIFT [facility] Labs CBC & Chem 7: 04/16/20 06:30 04/18/20 06:15 Labs: Laboratory Results - last 24 hr 04/17/20 04/18/20 04/18/20 20:54 06:15 06:15 Sodium 140 Potassium 4.7 Chloride 109 H Carbon Dioxide 22 Anion Gap 14 BUN 43 H Creatinine 1.80 H Estim Creat Clear Calc 71.8 Estimated GFR 39 POC Glucose 287 H Random Glucose 168 H Estimat Average Glucose 200 Hemoglobin A1c % 8.6 Calcium 6.8 L Total Creatine Kinase 1343 H D 04/18/20 04/18/20 07:39 11:38 Sodium Potassium Chloride Carbon Dioxide Anion Gap BUN Creatinine Estim Creat Clear Calc Estimated GFR POC Glucose 175 H 219 H Random Glucose Estimat Average Glucose Hemoglobin A1c % Calcium Total Creatine Kinase Microbiology Microbiology Results: Microbiology 04/15/20 20:28 Blood - Venous Blood Culture - Preliminary No growth after 48 hours. 04/15/20 20:28 Blood - Venous Blood Culture - Preliminary No growth after 48 hours. Assessment and Plan (1) Rhabdomyolysis: Status: Acute Assessment and Plan: hospital d#4 59yo M with CKD2 admitted for rhabdomyolysis s/p mecahnical fall # rhabdomyolysis - improving with saline diuresis, monitor Cr/CPK # orthostasis - resolved IV fluid resuscitation # hyperK - resolved s/p Kayexelate # CKD - Cr at baseline # back pain - continue APAP, heat packs # HTN - continue amlodipine, lisinopril, labetalol # HLD - continue statin # morbid obesity - weight loss advised # dispo - per PT STR is advised but pt refuses, will go home with VNA # VTE ppx - UFH
[2020-04-18 17:12] LABS: Glucose, Whole Blood 312 mg/dL (60-115)
[2020-04-18 21:06] LABS: Glucose, Whole Blood 203 mg/dL (60-115)
[2020-04-18] MEDS: Atorvastatin Calcium 10 MG TABLET PO (21:54)
[2020-04-18] MEDS: Acetaminophen 325 MG TABLET 650 MG PO (21:54)
[2020-04-19] VITALS: BP 153/66; BP 182/77; PULSE 65; RESP 18; TEMP 36.3; O2SAT 97
[2020-04-19] MEDS: 0.9 % Sodium Chloride Flush 3 ML SYRINGE IVFLUSH ×2 (00:01→07:49)
[2020-04-19 03:17] VITALS: BP 168/76; PULSE 63; RESP 19; TEMP 36.6; O2SAT 95
[2020-04-19] MEDS: Heparin Sodium,Porcine 5,000 UNIT/ML VIAL 5000 UNIT SUBCUT (06:30)
[2020-04-19 07:29] VITALS: BP 160/62; PULSE 68; RESP 18; TEMP 36.8; O2SAT 97
[2020-04-19 07:29] LABS: Glucose, Whole Blood 157 mg/dL (60-115)
[2020-04-19] MEDS: Insulin Lispro 100 UNIT/ML 3 ML VIAL SUBCUT (07:51)
[2020-04-19] MEDS: Insulin Glargine,Hum.rec.anlog 100 UNIT/ML 10 ML VIAL 68 UNIT SUBCUT (07:51)
[2020-04-19] MEDS: Acetaminophen 325 MG TABLET 650 MG PO (07:52)
[2020-04-19] MEDS: amLODIPine Besylate 5 MG TABLET PO (07:53)
[2020-04-19] MEDS: lisinopriL 5 MG TABLET PO (07:54)
[2020-04-19] MEDS: Labetalol HCL 200 MG TABLET PO (07:54)
--- NOTE | 2020-04-19 11:11 | MHC.CM.PN ---
Patient has been medically cleared for dc to home today with VNA. A referral was made to [facility], who has been made aware of today's dc. Patient's Sister/Roseanna at [phone] will be picking up Patient today at 2 PM; MD & RN made aware.
[2020-04-19 11:27] VITALS: BP 168/74; PULSE 78; RESP 20; TEMP 36.6; O2SAT 98
[2020-04-19 11:28] LABS: Glucose, Whole Blood 137 mg/dL (60-115)
== END 2020-04-19 15:00 | disposition home health service (06) | DRG 351 ==
LOC: HO.ED 13:53 → HO.IMC 17:50
PROVIDERS: Nurse Practitioner Acute Care; Nurse Practitioner Family; Admitting Provider Internal Medicine; Emergency Provider Emergency Medicine; PCP Internal Medicine; Visit Provider Family Medicine
DX: M62.82 Rhabdomyolysis (principal); N17.9 Acute kidney failure, unspecified; E10.22 Type 1 diabetes mellitus with diabetic chronic kidney disease; E66.01 Morbid (severe) obesity due to excess calories; Z68.43 Body mass index [BMI] 50.0-59.9, adult; I12.9 Hypertensive chronic kidney disease with stage 1 through stage 4 chronic kidney disease, or unspecified chronic kidney disease; M54.5 Low back pain; Z20.828 Contact with and (suspected) exposure to other viral communicable diseases; I95.1 Orthostatic hypotension; N18.2 Chronic kidney disease, stage 2 (mild); E78.5 Hyperlipidemia, unspecified; Z87.891 Personal history of nicotine dependence; Z79.899 Other long term (current) drug therapy
CPT/HCPCS: 36415; 70450; 71045; 71250; 72100; 72125; 80048; 80076; 81001; 82550; 82803; 82947; 83036; 83605; 83735; 84132; 84484; 85025; 85610; 87040; 93005; 96361; 96374; 97116; 97162; 99285; J0610; J3475; U0003

== ENCOUNTER 2020-04-25 17:10 | Outpatient (REF) | payer OTHER, SELFPAY ==
[2020-04-25 17:54] LABS: Anion Gap 13 (12-20); Blood Urea Nitrogen 20 mg/dL (9-16); Calcium 7.8 mg/dL (8.4-10.2); Carbon Dioxide 28 mmol/L (22-29); Chloride 107 mmol/L (96-108); Estimated Glomerular Filt Rate 56; Glucose Random 95 mg/dL (60-115); Potassium 5.7 mmol/l (3.3-5.1); Sodium 142 mmol/L (135-145)
== END 2020-04-25 17:11 | disposition home or self-care (01) ==
LOC: HO.LNP 17:10
PROVIDERS: Visit Provider Internal Medicine
DX: M62.82 Rhabdomyolysis (principal)
CPT/HCPCS: 80048

== ENCOUNTER 2020-08-05 17:46 | Emergency (ER) | payer OTHER, SELFPAY ==
--- NOTE | ~2020-08-05 | CT_ITS ---
EXAMINATION: CT ANGIOGRAM CHEST CLINICAL INFORMATION: Evaluate for dissection. Hypertension. Mid back pain. COMPARISON: 04/15/2020 TECHNIQUE: Multiple axial images were obtained through the chest after the administration of 80 mL of Omnipaque 350 intravenous contrast. Extensive vascular post-processing including two-dimensional and three-dimensional reformatted images were created and reviewed on an independent workstation. This CT examination was performed using dose optimization techniques as appropriate, variously including the following: *Automated exposure control *Adjustment of mA and/or kV according to patient size (this includes techniques or standardized protocols for targeted exams where dose is matched to indication/reason for exam; i.e. extremities or head) *Use of iterative reconstruction technique DLP: 596 mGy-cm FINDINGS: VASCULAR: The noncontrast images fail to demonstrate evidence of intramural hematoma. Postcontrast images reveal normal caliber great vessels without evidence of aortic aneurysm, penetrating atherosclerotic ulceration or dissection. There is a web within the left lower lobe common basal pulmonary artery extending into the lateral segmental pulmonary artery. No acute pulmonary emboli. NONVASCULAR: There are erosive and destructive changes involving the inferior half of T4 and superior half of T5, with accompanying sclerosis within the remaining T4-T5 vertebral bodies. There are lytic and destructive changes within the adjacent posterior fourth and fifth ribs bilaterally. There is ill-defined inflammatory changes/soft tissue surrounding the T4-T5 vertebral bodies. The extent of central canal compromise cannot be assessed. There is associated partial collapse of the T4 vertebral body leading to severe bilateral foraminal narrowing at C4-C5. Suspect at least moderate central canal stenosis at C4-C5. Lungs are clear. No pleural effusion or pneumothorax. Normal heart size. No pericardial effusion. Triple vessel coronary calcifications. No mediastinal, hilar or supraclavicular adenopathy. Axillae unremarkable. Imaged upper abdomen demonstrates cholelithiasis and diverticulosis. CT/CT angio chest IMPRESSION: * No aortic aneurysm or dissection. * Thin web present within the left common basal pulmonary artery suggests previous pulmonary embolism with near complete resolution. * Interval development of sclerosis and erosive/destructive changes involving the inferior half of T4 vertebral body with associated partial collapse, and superior half of the T5 vertebral body suspicious for spondylodiscitis. There is associated severe bilateral neural foraminal narrowing at T4-T5, and likely at least moderate central canal stenosis at T4-T5. This is in part due to surrounding inflammation and phlegmonous change surrounding the T4 and T5 vertebral bodies. * Recommend MRI of the thoracic spine without and with contrast for further evaluation. This critical result was discussed with c at 08/05/2020 9:03 PM and it was ascertained that the content and urgency of the report was understood at the time of direct communication.
[2020-08-05 18:00] VITALS: BP 177/87; BP 179/85; PULSE 101; PULSE 103; RESP 21; TEMP 36.4; O2SAT 97; O2SAT 98; BMI 52.0
--- NOTE | 2020-08-05 18:27 | ECG_ITS ---
Test Reason : FALL Blood Pressure : / mmHG Vent. Rate : 092 BPM Atrial Rate : 092 BPM P-R Int : 164 ms QRS Dur : 098 ms QT Int : 358 ms P-R-T Axes : 049 024 031 degrees QTc Int : 442 ms Normal sinus rhythm Low voltage QRS Borderline ECG When compared with ECG of 15-APR-2020 13:32, No significant change was found Referred By: Adriane Llanes Electronically Signed By:JUSTIN SAMSON
--- NOTE | 2020-08-05 18:29 | ED.GENADULT ---
HPI - General Adult General Chief complaint: Weakness Stated complaint: SEVERE PAIN IN LEFT SCAPULA, GENERAL WEAKNESS Time Seen by Provider: 08/05/20 17:54 Source: patient Mode of arrival: ambulatory Limitations: no limitations History of Present Illness HPI narrative: Patient comes emergency room complaining of left shoulder blade ripping pain. Patient states earlier this afternoon, patient had a mechanical fall, his cane got stuck in the corner of a table and patient landed on the left side of his body. Patient was able to get up, patient decided to go and take a nap, he woke up with excruciating pain between his shoulder blades. At this time, patient states the pain is not as intense, hurts more with movement. Patient denies chest pain, diaphoresis or abdominal pain. Patient also complaining of weakness and fatigue for 1 month no upper respiratory symptoms. Related Data Home Medications Medication Instructions Recorded Confirmed simvastatin 2 tab PO BEDTIME 04/15/20 04/15/20 Previous Rx's Medication Instructions Recorded metformin 1,000 mg tablet 1,000 mg PO BID #60 tab 04/07/20 insulin glargine 100 unit/mL (3 68 unit SUBCUT DAILY #15 ml 05/10/20 mL) subcutaneous pen blood-glucose meter #1 ea 05/11/20 amlodipine 5 mg tablet 5 mg PO DAILY #30 tab 07/27/20 folic acid 1 mg tablet 1 mg PO DAILY #30 tab 07/27/20 lisinopril 5 mg tablet 5 mg PO DAILY #30 tab 07/27/20 labetalol 200 mg tablet 200 mg PO BID #60 tab 08/02/20 Allergies Allergy/AdvReac Type Severity Reaction Status Date / Time No Known Allergies Allergy Verified 05/29/20 06:51 [No Known Allergies*] Review of Systems Review of Systems: Constitutional : No Weight loss, No Fever, No Chills, No Night Sweats, No Fatigue, No Malaise ENT/Mouth : No Hearing loss, No Ear Pain, No Nasal Congestion, No Sinus Pain, No Hoarseness, No sore throat, No Rhinorrhea, No Swallowing Difficulty Eyes: No Eye Pain, No Swelling, No Redness, No Foreign Body, No Discharge, No Vision Changes Cardiovascular : No Chest Pain, No SOB, No Dyspnea on Exertion, No Orthopnea, No Edema, No Palpitations Respiratory : No Cough, No Sputum, No Wheezing, No Smoke Exposure, No Dyspnea Gastrointestinal : No Nausea, No Vomiting, No Diarrhea, No Constipation, No abdominal Pain, No Hematochezia, No Melena Genitourinary : no irregular bleeding, No Dysuria, No Urinary Frequency, No Hematuria, No Urinary Incontinence, No Urgency, No Flank Pain, No Urinary Flow Changes, No Hesitancy Musculoskeletal : No joint pain, No Myalgias, No Joint Swelling, pain between shoulder blades Skin : No Skin Lesions, No rash Neuro : No Weakness, No Numbness, No Paresthesias, No Loss of Consciousness, No Dizziness, No Headache Psych : No Anxiety/Panic, No Depression, No SI/HI/AH/VH, No Social Issues, Heme/Lymph: No Bruising, No Bleeding,No Lymphadenopathy Endocrine : No Polyuria, No Polydipsia, No Temperature Intolerance [facility] Past Medical History Medical History Diabetic acidosis, type I High cholesterol HTN (hypertension) Surgical History History of ankle surgery History of colonoscopy History of hand surgery Hx of hernia repair Family History Family History (Updated 05/29/20 @ 07:05 by Emi Allen [facility]) Father Heart disease Mother In good health Brother In good health Brother Hypertension Brother CAD (coronary artery disease) Sister In good health Social History Social History (Updated 06/06/20 @ 11:21 by Nella Plummer Julia) Household Members: Other Housing: Apartment Alcohol intake: never Smoking Status: Former smoker Second Hand Smoke Exposure: No Advance Directives: No Advance Directives Information Provided: Yes service: No Current occupational status: disabled Physical Exam Vital Signs: Vital Signs: Last Vital Signs Temp 98.9 F 08/05/20 22:00 Pulse 92 08/05/20 22:00 Resp 16 08/05/20 22:00 BP 149/65 H 08/05/20 22:00 Pulse Ox 97 08/05/20 22:00 Body Mass Index 52.0 Appearance: Alert. Oriented X3. No acute distress. Eyes: Pupils equal, round and reactive to light. ENT: Pharynx normal. Neck: Normal inspection. Neck supple. No lymph nodes noted. No crepitus CVS: Normal heart rate and rhythm. Pulses normal. Normal S1 and S2 Respiratory: No respiratory distress. Breath sounds normal. No Wheezing. No rales Abdomen: Soft and nontender. No rigidity. No distention. good BS x4 Back: Pain to palpation over the left shoulder blade, no C-spine, thoracic or lumbar spine tenderness or palpable step-offs Skin: Skin warm and dry. Normal skin color. Normal skin turgor. Extremities: Bilateral lower extremity nonpitting edema +3, multiple old lesions in both feet Neuro: Oriented X 3. No motor deficit. No sensory deficit. Moving all extermities. No slurred speech. Course Course Course Narrative: On arrival, patient complaining of pain between his shoulder blades, blood pressure 180 systolic. Discussed with the patient's nurse to try to get an IV as soon as possible, get him to the CT scan without waiting for labs to rule out dissection. Patient's CT scan is negative for dissection. However, he does have spondylotic disc height is, has severe bilateral neural foraminal narrowing at C4 through 5, has surrounding inflammation and phlegmonous change surrounding T4-T5 Initially patient was admitted to our hospitalist for spun the diskitis. Patient has no neurological deficits or symptoms, only localized pain. Patient received 2 g of cefazolin and 1750 mg vancomycin. Neurology consult with Dr. Ornelas was obtained, recommends stat MRI to rule out cord compression, and patient may also need a biopsy. At this time, we do not have MRI services, patient will be transferred to [facility]. I discussed the patient with Dr. Hawkins from [facility] ED, patient being transferred to ED to ED Medical Decision Making Lab Data Result diagrams: 08/05/20 18:57 08/05/20 19:59 Labs: Lab Results 08/05/20 08/05/20 08/05/20 Range/Units 18:57 18:59 19:59 WBC 11.1 H (4.8-10.8) X10*3/uL RBC 4.59 L (4.60-5.80) X10*6/uL Hgb 12.2 L (14.0-18.0) g/dl Hct 38.9 L (42-52) % MCV 84.7 (80-98) fL MCH 26.6 L (27.0-33.0) pg MCHC 31.4 (31.0-36.0) g/dl RDW 13.8 (11.0-16.0) % Plt Count 267 D (160-400) X10*3/uL MPV 9.0 L (9.4-12.4) fL Immature Gran % (Auto) 0.4 (0.0-0.4) % Neut % (Auto) 83.2 H (45-73) % Lymph % (Auto) 8.5 L (20-40) % [place] % (Auto) 7.2 (2-11) % Eos % (Auto) 0.4 (0-4) % Baso % (Auto) 0.3 (0-2) % Lymph # (Auto) 0.9 L (1.2-4.9) X10*3/uL [place] # (Auto) 0.8 (0.1-1.2) X10*3/uL Eos # (Auto) 0.0 (0.0-0.4) X10*3/uL Baso # (Auto) 0.0 (0.0-0.2) X10*3/uL Abs Immat Gran (auto) 0.05 H (0.00-0.03) X10*3/uL Absolute Neuts (auto) 9.3 H (2.0-8.3) X10*3/uL Absolute Nucleated RBC 0.000 (0.0-0.012) X10*3/uL Nucleated RBC % (auto) 0.0 (0.0-0.2) /100WBC Sodium 139 (135-145) mmol/L Potassium 5.4 H (3.3-5.1) mmol/L Chloride 105 (96-108) mmol/L Carbon Dioxide 24 (22-29) mmol/L Anion Gap 15 (12-20) BUN 27 H (9-16) mg/dL Creatinine 1.53 H (0.5-1.4) mg/dL Estim Creat Clear Calc 78.2 Estimated GFR 47 Random Glucose 98 (60-115) mg/dL Lactic Acid (0.5-2.0) mmol/L Calcium 8.8 D (8.4-10.2) mg/dL Total Bilirubin 0.3 (0.0-1.0) mg/dL Direct Bilirubin 0.2 (0.0-0.5) mg/dL AST 11 D (5-37) U/L ALT 7 (0-40) U/L Alkaline Phosphatase 90 D (39-117) U/L Total Protein 7.2 (6.5-8.0) g/dL Albumin 3.9 (3.5-5.0) g/dL Urine Color Urine Appearance Urine pH (5.0-8.0) Ur Specific [place] (1.005-1.025) Urine Protein (NEG-TRACE) MG/DL Urine Glucose (UA) (NEG) MG/DL Urine Ketones (NEG) MG/DL Urine Blood (NEG) Urine Nitrite (NEG) Ur Leukocyte Esterase (NEG) Urine RBC (0) /HPF Urine WBC (0-4) /HPF Ur Squamous Epith Cells /LPF Amorphous Sediment /LPF Urine Bacteria /LPF Granular Casts /LPF COVID-19 ([facility]) Negative (Negative) COVID-19 Clin Com See Note 08/05/20 08/05/20 Range/Units 20:00 22:13 WBC (4.8-10.8) X10*3/uL RBC (4.60-5.80) X10*6/uL Hgb (14.0-18.0) g/dl Hct (42-52) % MCV (80-98) fL MCH (27.0-33.0) pg MCHC (31.0-36.0) g/dl RDW (11.0-16.0) % Plt Count (160-400) X10*3/uL MPV (9.4-12.4) fL Immature Gran % (Auto) (0.0-0.4) % Neut % (Auto) (45-73) % Lymph % (Auto) (20-40) % [place] % (Auto) (2-11) % Eos % (Auto) (0-4) % Baso % (Auto) (0-2) % Lymph # (Auto) (1.2-4.9) X10*3/uL [place] # (Auto) (0.1-1.2) X10*3/uL Eos # (Auto) (0.0-0.4) X10*3/uL Baso # (Auto) (0.0-0.2) X10*3/uL Abs Immat Gran (auto) (0.00-0.03) X10*3/uL Absolute Neuts (auto) (2.0-8.3) X10*3/uL Absolute Nucleated RBC (0.0-0.012) X10*3/uL Nucleated RBC % (auto) (0.0-0.2) /100WBC Sodium (135-145) mmol/L Potassium (3.3-5.1) mmol/L Chloride (96-108) mmol/L Carbon Dioxide (22-29) mmol/L Anion Gap (12-20) BUN (9-16) mg/dL Creatinine (0.5-1.4) mg/dL Estim Creat Clear Calc Estimated GFR Random Glucose (60-115) mg/dL Lactic Acid 1.1 (0.5-2.0) mmol/L Calcium (8.4-10.2) mg/dL Total Bilirubin (0.0-1.0) mg/dL Direct Bilirubin (0.0-0.5) mg/dL AST (5-37) U/L ALT (0-40) U/L Alkaline Phosphatase (39-117) U/L Total Protein (6.5-8.0) g/dL Albumin (3.5-5.0) g/dL Urine Color YELLOW Urine Appearance HAZY Urine pH 5.5 (5.0-8.0) Ur Specific [place] >= 1.030 H (1.005-1.025) Urine Protein 2+ H (NEG-TRACE) MG/DL Urine Glucose (UA) NEG (NEG) MG/DL Urine Ketones NEG (NEG) MG/DL Urine Blood 2+ H (NEG) Urine Nitrite NEG (NEG) Ur Leukocyte Esterase NEG (NEG) Urine RBC 0-2 (0) /HPF Urine WBC 1-4 (0-4) /HPF Ur Squamous Epith Cells TRACE /LPF Amorphous Sediment 1+ /LPF Urine Bacteria TRACE /LPF Granular Casts 0-2 /LPF COVID-19 ([facility]) (Negative) COVID-19 Clin Com ECG Data Attestation: I personally reviewed and interpreted this ECG as follows: (Heart rate 92, QTC 442, no ST segment depression or elevation, no T-wave inversion, low-voltage EKG) Discharge Plan Discharge Clinical Impression: Spondylodiscitis Patient Disposition: Xfer Acute Care Hospital Transfer Details: [facility] ED Prescriptions: No Action metformin 1,000 mg tablet 1,000 mg PO BID Qty: 60 RF: 3 insulin glargine [Basaglar KwikPen U-100 Insulin] 100 unit/mL (3 mL) insulin pen 68 unit subcut DAILY Qty: 15 RF: 1 (DME) blood-glucose meter [FreeStyle Lite Meter] Kit See Rx Instructions .ROUTE .MEDSUPPLY Qty: 1 RF: 0 folic acid 1 mg tablet 1 mg PO DAILY Qty: 30 RF: 6 amlodipine 5 mg tablet 5 mg PO DAILY Qty: 30 RF: 2 lisinopril 5 mg tablet 5 mg PO DAILY Qty: 30 RF: 6 labetalol 200 mg tablet 200 mg PO BID Qty: 60 RF: 5 simvastatin 10 mg tablet 2 tab PO BEDTIME RF: 0 Interventions: Acute Care Transfer Worksheet (ED) Last Done: 08/05/20 23:12 Discharge Date/Time: 08/05/20 23:13
[2020-08-05 19:05] LABS: MANUAL DIFF FLAG NO
[2020-08-05 19:14] LABS: Basophils Percent Auto 0.3 % (0-2); Eosinophils Percent Auto 0.4 % (0-4); Hematocrit 38.9 % (42-52); Hemoglobin 12.2 g/dl (14.0-18.0); Imm Gran Abs Auto 0.05 X10*3/uL (0.00-0.03); Imm Gran Pct Auto 0.4 % (0.0-0.4); Lymphocytes Absolute Auto 0.9 X10*3/uL (1.2-4.9); Lymphocytes Percent Auto 8.5 % (20-40); Mean Corpuscular HGB Conc 31.4 g/dl (31.0-36.0); Mean Corpuscular Hemoglobin 26.6 pg (27.0-33.0); Mean Corpuscular Volume 84.7 fL (80-98); Monocytes Absolute Auto 0.8 X10*3/uL (0.1-1.2); Monocytes Percent Auto 7.2 % (2-11); Neutrophils Absolute Auto 9.3 X10*3/uL (2.0-8.3); Neutrophils Percent Auto 83.2 % (45-73); Platelet Count 267 X10*3/uL (160-400); Red Blood Count 4.59 X10*6/uL (4.60-5.80); Red Cell Distribution Width 13.8 % (11.0-16.0); White Blood Count 11.1 X10*3/uL (4.8-10.8)
[2020-08-05 19:23] LABS: COVID-19 Test Negative (Negative)
--- NOTE | 2020-08-05 19:29 | PC.NURSE ---
EKG obtained at the bedside at 19:27. Will continue to monitor. 20g IV access established in left AC by ELZA Tony.
[2020-08-05 20:08] LABS: Glucose Urine UA NEG (NEG); Leukocyte Esterase Urine NEG (NEG); Nitrite Urine NEG (NEG); PH 5.5 (5.0-8.0); Specific Gravity - Urine >= 1.030 (1.005-1.025); Urine Blood 2+ (NEG); Urine Ketones NEG (NEG); Urine Protein 2+ MG/DL (NEG-TRACE)
[2020-08-05 20:09] LABS: Appearance Urine HAZY; Color Urine YELLOW
[2020-08-05 20:30] LABS: RBC Urine 0-2 /HPF (0)
[2020-08-05 20:31] LABS: Amorphous Sediment Urine 1+ /LPF; Bacteria Urine TRACE /LPF; Granular Casts Urine 0-2 /LPF; Squamous Epithelial Cell Urine TRACE /LPF
[2020-08-05 20:45] LABS: Alanine Aminotransferase 7 U/L (0-40); Albumin Level 3.9 g/dL (3.5-5.0); Alkaline Phosphatase 90 U/L (39-117); Anion Gap 15 (12-20); Aspartate Amino Transferase 11 U/L (5-37); Bilirubin Direct 0.2 mg/dL (0.0-0.5); Bilirubin Total 0.3 mg/dL (0.0-1.0); Blood Urea Nitrogen 27 mg/dL (9-16); Calcium 8.8 mg/dL (8.4-10.2); Carbon Dioxide 24 mmol/L (22-29); Chloride 105 mmol/L (96-108); Creatinine Clr Calc Pharmacy 78.2; Estimated Glomerular Filt Rate 47; Glucose Random 98 mg/dL (60-115); Potassium 5.4 mmol/L (3.3-5.1); Sodium 139 mmol/L (135-145); Total Protein 7.2 g/dL (6.5-8.0)
[2020-08-05] MEDS: iohexoL 350 MG/ML 100 ML INFUS..BTL IV (20:45)
[2020-08-05 21:04] VITALS: RESP 16
[2020-08-05] MEDS: Morphine Sulfate 4 MG/ML CARTRIDGE IVPUSH (21:04)
[2020-08-05 21:06] VITALS: BP 145/78; PULSE 97; RESP 16; O2SAT 96
[2020-08-05 22:00] VITALS: BP 149/65; PULSE 92; RESP 16; TEMP 37.2; O2SAT 97
[2020-08-05] MEDS: ceFAZolin Sodium/Dextrose,Iso 2 GM/50 ML PIGGYBACK IV (22:40)
[2020-08-05 22:49] LABS: Lactic Acid 1.1 mmol/L (0.5-2.0)
[2020-08-05] MEDS: 0.9 % Sodium Chloride 1,000 ML 999 ML IVCONT (22:49)
--- NOTE | 2020-08-06 23:39 | PC.NURSE ---
RECEIVED A CALL FROM PHARMACY. 2ND SET OF CULTURES GRAM + IN CLUSTERS. REPORT GIVEN TO GENTRY [place] [address] [id number]
== END 2020-08-05 23:13 | disposition short-term general hospital (02) ==
PROVIDERS: Emergency Provider Emergency Medicine; PCP Internal Medicine
DX: M46.46 Discitis, unspecified, lumbar region (principal); Z20.822 Contact with and (suspected) exposure to COVID-19; E10.9 Type 1 diabetes mellitus without complications; I10 Essential (primary) hypertension; E78.5 Hyperlipidemia, unspecified; Z87.891 Personal history of nicotine dependence; Z79.4 Long term (current) use of insulin; Z79.899 Other long term (current) drug therapy
CPT/HCPCS: 36415; 51701; 71275; 80048; 80076; 81001; 83605; 85025; 87040; 87077; 87186; 87205; 87635; 93005; 96361; 96365; 96366; 96374; 99285; J0690; J2270; Q9967